=== PATIENT | male | born 1935 | race Caucasian/White ===

== ENCOUNTER 2020-12-02 10:08 | Emergency (ER) | payer OTHER, SELFPAY ==
--- NOTE | ~2020-12-02 | XR_ITS ---
EXAMINATION: XR shoulder LT min 2V DATE: 12/02/2020 11:13 INDICATION: Left shoulder injury. TECHNIQUE: 4 views of left shoulder were obtained. COMPARISON: None. FINDINGS: Bone alignment is normal. No acute fracture. There is mild osteoarthritis of glenohumeral j oint and severe osteoarthritis of acromioclavicular joint. There is an old healed left rib fracture. IMPRESSION: 1. Polyarticular osteoarthritis. Reviewed, dictated and finalized at location A. [employer]
--- NOTE | ~2020-12-02 | XR_ITS ---
EXAMINATION: [id number] INDICATION: Left chest wall pain TECHNIQUE: A frontal view of the chest and 3 views of the left ribs were obtained. COMPARISON: 01/26/2019 FINDINGS: There are acute fractures of the left seventh through ninth ribs. Minimal airspace opacitie s are present in the lung bases. There is no pleural effusion or pneumothorax. Cardiomegaly is noted. IMPRESSION: 1. Acute fractures of the left seventh through ninth ribs. 2. Bibasilar airspace opacities, likely atelectasis. Reviewed, dictated and finalized at location A. NER WALL
[2020-12-02 10:16] VITALS: BP 114/72; PULSE 93; RESP 18; TEMP 37.1; O2SAT 95
--- NOTE | 2020-12-02 11:37 | ED.GENADULT ---
HPI - General Adult General Chief complaint: Fall Stated complaint: Fall - LEFT SHOULDER, LEFT RIB pain x 3 days Time Seen by Provider: 12/02/20 10:33 Source: patient Mode of arrival: ambulatory Limitations: no limitations History of Present Illness HPI narrative: Patient presents with chief complaint of pain to his left shoulder and left ribs after he slipped trying to pull out a mole tramp in his yard and landed on his left side. Patient denies hitting his head or any loss of consciousness. Patient denies any chest pain or shortness of breath. Patient states that he has noticed the most pain to the left side of his ribs in has range of motion in his shoulder but feels a pulling sensation into the left side of his ribs when he does left shoulder movement. Patient denies any other areas of injury or pain. Related Data Home Medications Medication Instructions Recorded Confirmed aspirin 81 mg PO DAILY 12/02/20 lisinopril 20 mg PO DAILY 12/02/20 metoprolol succinate 100 mg PO BID 12/02/20 nifedipine 30 mg PO DAILY 12/02/20 Allergies Allergy/AdvReac Type Severity Reaction Status Date / Time No Known Allergies Allergy Unverified 12/02/20 10:22 Review of Systems Review of Systems: Narrative: CONSTITUTIONAL: Denies fever, chills, or sweats. EYES: Denies visual changes, redness, or discharge. ENT: Denies rhinorrhea, congestion, sore throat, or otalgia. CARDIOVASCULAR: Denies chest pain, palpitations, or edema. RESPIRATORY: Denies cough or dyspnea. GASTROINTESTINAL: Denies abdominal pain, nausea, vomiting, or diarrhea. GENITOURINARY: Denies dysuria or hematuria. SKIN: Denies rash or itching. MUSCULOSKELETAL: Reports left rib and shoulder pain denies back pain, joint pain, or myalgia. NEUROLOGIC: Denies headache, numbness, dizziness, or weakness. PSYCHIATRIC: Denies anxiety or depression. [facility] Past Medical History Medical History (Updated 12/02/20 @ 11:46 by Thelma Modi PA-C) Arthritis Hypertension Social History Social History Gender identity (if verbalized by the patient): Male Exam Narrative: Exam Narrative: GENERAL: Well-appearing, well-nourished, and in no acute distress. HEAD: Normocephalic, atraumatic. EYES: PERRLA and EOMI. NECK: Supple. No adenopathy or masses. CHEST: Pain with palpation of left chest wall/ribs. Clear to auscultation. No respiratory distress. No wheezes rales or rhonchi HEART: Regular rate and rhythm. No murmur heard. Normal peripheral pulses. ABDOMEN: Soft, nontender, nondistended, normal active bowel sounds. EXTREMITIES: Normal range of motion of left shoulder but reports discomfort to pectoral area with motion. No edema. SKIN: Warm, dry, no rash. NEURO: No focal deficits. Alert and oriented x3. PSYCH: Normal mood and affect. Course Vital Signs Vital signs: Vital Signs Temperature 98.7 F 12/02/20 10:16 Pulse Rate 93 12/02/20 10:16 Respiratory Rate 18 12/02/20 10:16 Blood Pressure 114/72 12/02/20 10:16 Pulse Oximetry 95 12/02/20 10:16 Temperature 98.7 F 12/02/20 10:16 Pulse Rate 93 12/02/20 10:16 Respiratory Rate 18 12/02/20 10:16 Blood Pressure 114/72 12/02/20 10:16 Pulse Oximetry 95 12/02/20 10:16 Medical Decision Making MDM Narrative Medical decision making narrative: Discussed with the patient that he has rib fractures. Patient is talking without difficulty, there is no signs of flail chesting and patient is maintaining his oxygenation 96% on room air. Discussed with the patient the importance of close follow-up with his primary care and the importance of deep breathing to avoid complications such as pneumonia. Patient verbalized understanding agreement. Patient will be given a few tablets of tramadol to assist with discomfort and to help him take deep breaths. Patient verbalized understanding and agreement with plan denies any other needs or concerns. Differential Diagnosis Differential Diagnosis: Pneumothorax, rib
[2020-12-02 12:08] VITALS: BP 116/74; PULSE 94; RESP 18; O2SAT 97
== END 2020-12-02 12:08 | disposition home or self-care (01) ==
PROVIDERS: Emergency Provider Emergency Medicine
DX: S43.402A Unspecified sprain of left shoulder joint, initial encounter (principal); S22.42XA Multiple fractures of ribs, left side, initial encounter for closed fracture; Z79.82 Long term (current) use of aspirin; I10 Essential (primary) hypertension; M19.012 Primary osteoarthritis, left shoulder; W18.39XA Other fall on same level, initial encounter
CPT/HCPCS: 71101; 73030; 99284

== ENCOUNTER 2021-06-03 10:29 | Emergency (ER) | payer OTHER, SELFPAY ==
--- NOTE | ~2021-06-03 | XR_ITS ---
EXAMINATION: XR chest 1V portable INDICATION: Chest pain TECHNIQUE: Portable AP chest at 1101 hours COMPARISON: 01/26/[address] from today FINDINGS: There is a moderate-sized left pneumothorax. Multiple displaced left rib fractures are note d. There is a left pleural effusion. The heart size is normal. There are airspace opacities of the neville ng bases. IMPRESSION: 1. Moderate-sized left hemopneumothorax given findings on associated CT. 2. Multiple displaced left rib fractures. These findings were discussed with RED Acevedo in the Emergency Department at 1200 hour s on 06/03/2021. Reviewed, dictated and finalized at location A. IMPRESSION: 1. Moderate-sized left hemopneumothorax given findings on associated CT. 2. Multiple displaced left rib fractures. These findings were discussed with RED Acevedo in the Emergency D epartment at 1200 hours on 06/03/2021.
--- NOTE | ~2021-06-03 | CT_ITS ---
EXAMINATION: CT facial & cervical spine wo DATE: 06/03/2021 11:54 INDICATION: Facial and neck pain after fall TECHNIQUE: Computed tomography (CT) of the maxillofacial region and cervical spine was performed with out intravenous contrast. The dose-length product (DLP) was 568.06 mGy-cm. Automated exposure control and iterative reconstruction technique were employed. COMPARISON: None FINDINGS: MAXILLOFACIAL CT: No acute facial fracture is identified. The orbits are intact. The globes are normal. There is mild l eft facial soft tissue swelling. CERVICAL SPINE CT: The cervical vertebral body heights are maintained. There are bridging osteophytes at multiple levels in the spine, consistent with diffuse idiopathic skeletal hyperostosis (DISH). There is moderate los s of intervertebral disc space height at C6-7.There are 2 mm of anterolisthesis of C5 on C6. The odon toid is intact. There is moderate multilevel facet and uncovertebral joint osteoarthritis. A left hyd ropneumothorax is noted which is described in the chest abdomen and pelvis CT report. IMPRESSION: 1. Moderate cervical spondylosis without acute findings. No facial fracture. Reviewed, dictated and finalized at location A.
--- NOTE | ~2021-06-03 | CT_ITS ---
EXAMINATION: CT brain wo con INDICATION: Head injury COMPARISON: 01/26/2019 TECHNIQUE: Standard unenhanced head CT. The dose-length product (DLP) was 605.33 mGy-cm. The mA was a djusted according to patient size. Iterative reconstruction technique was employed. FINDINGS: There is no acute intraparenchymal hemorrhage. No evidence of mass lesion. No evidence of a cute infarction. Again noted are old lacunar infarcts of the bilateral basal ganglia. There is mild p eriventricular and subcortical hypodensity probably related to small vessel ischemic disease. There i s mild prominence of the sulci and ventricles related to cerebral atrophy. Intracranial calcified cer ebral atherosclerosis is noted. There are no extra-axial collections. There is no mass effect or midl ine shift. The orbits and soft tissues are unremarkable. The visualized sinuses and mastoid air cells are well aerated. IMPRESSION: 1. No acute intracranial abnormality. 2. Age related findings. Reviewed, dictated and finalized at location A.
--- NOTE | ~2021-06-03 | CT_ITS ---
EXAMINATION: CT chest abdomen pelvis w con DATE: 06/03/2021 11:53 INDICATION: Left-sided chest and abdominal pain TECHNIQUE: Transaxial computed tomographic images of the chest, abdomen, and pelvis were obtained aft er the administration of 100 cc of Omnipaque 350 intravenous contrast. The dose-length product (DLP) was 1659.48 mGy-cm. Automated exposure control and iterative reconstruction technique were employed. COMPARISON: None FINDINGS: CHEST CT: There are comminuted, displaced, and segmental fractures of the left fourth, fifth, sixth, seventh, a nd eighth ribs. There is a minimally displaced fracture of the left ninth rib. There is a comminuted fracture of the left scapula. There is a moderate-sized left pneumothorax. Hyperattenuating left pleu ral effusion is consistent with hemothorax. There are airspace opacities of the lung bases. A large v olume of subcutaneous emphysema is present in the left chest wall. No pathologically enlarged thoraci c lymph nodes are identified. The heart size is normal. There are bridging osteophytes at multiple le vels in the spine, consistent with diffuse idiopathic skeletal hyperostosis (DISH). Calcified coronar y artery atherosclerosis is noted. ABDOMEN/PELVIS CT: The liver, spleen, pancreas, gallbladder, and adrenal glands are normal. There is a 2.2 cm cyst of th e left kidney. The right kidney is unremarkable. There is calcified atherosclerosis of the aorta and many of the other arteries. No pathologically enlarged abdominal or pelvic lymph nodes are identified . There is no free intraperitoneal gas or evidence of bowel obstruction. Prostatomegaly is noted. The appendix is normal. There is an umbilical hernia containing a short segment of nonobstructed small b owel. There is moderate lumbar spondylosis. IMPRESSION: 1. Displaced and segmental left-sided rib fractures with moderate-sized left hydropneumothorax, left scapular fracture, and large volume of subcutaneous emphysema in the left chest wall. These findings were discussed with RED Acevedo in the Emergency Department at 1200 hour s on 06/03/2021. Reviewed, dictated and finalized at location A. IMPRESSION: 1. Displaced and segmental left-sided rib fractures with moderate-sized left hy dropneumothorax, left scapular fracture, and large volume of subcutaneous emphy sema in the left chest wall. These findings were discussed with RED Acevedo in the Emergency D epartment at 1200 hours on 06/03/2021.
[2021-06-03 10:34] VITALS: BP 133/82; PULSE 105; RESP 38; TEMP 36.8; O2SAT 88
--- NOTE | 2021-06-03 10:49 | ECG_ITS ---
Measurements Intervals [place] Rate: 89 P: -31 MA: 132 QRS: -38 QRSD: 112 T: 54 QT: 371 QTc: 452 Interpretive Statements SINUS RHYTHM LEFT AXIS DEVIATION INCOMPLETE RIGHT BUNDLE BRANCH BLOCK BORDERLINE T WAVE ABNORMALITY- ANTERIOR LEADS BORDERLINE ECG Electronically Signed On 06-03-2021 12:05:55 CDT by Kendell Navarro D.O.
--- NOTE | 2021-06-03 10:54 | ED.GENADULT ---
HPI - General Adult General Chief complaint: Head Injury Stated complaint: dizzy, fell 2 days ago Time Seen by Provider: 06/03/21 10:31 Source: patient Mode of arrival: ambulatory Limitations: no limitations History of Present Illness HPI narrative: Patient presents for evaluation of left-sided rib pain after sustaining a fall 2 days ago. He indicates he was on the second step from the ground on a ladder when he fell. He thought he was on the bottom step, which caused his misstep. He hit the left side of his chest and his face on the ground. No LOC. Not on blood thinners other than aspirin. Since the time of the fall, he has become dizzy, lightheaded, and experienced shortness of breath all of which are primarily present with exertion. States his current pain level in the left side of his chest wall is 4 out of 10 in severity. Denies cough and shortness of breath at rest. He lives at home alone. He indicates that he has had abnormal blood pressure and heart rate readings at home. Upon my review of his log, it appears that his baseline blood pressure is 130s to 150s systolic but he has had readings in the 80s to 110's since the time of the fall. Of note, his heart rate has been as high as the 150s following the fall per the log presented to me today. Related Data Home Medications Medication Instructions Recorded Confirmed aspirin 81 mg PO DAILY 12/02/20 06/03/21 lisinopril 20 mg PO DAILY 12/02/20 06/03/21 metoprolol succinate 100 mg PO BID 12/02/20 06/03/21 nifedipine 30 mg PO DAILY 12/02/20 06/03/21 Allergies Allergy/AdvReac Type Severity Reaction Status Date / Time No Known Allergies Allergy Verified 06/03/21 10:44 Review of Systems Review of Systems: Narrative: CONSTITUTIONAL: Denies fever, chills, or sweats. EYES: Denies visual changes, redness, or discharge. ENT: Reports laceration to the lower lip. Denies rhinorrhea, congestion, sore throat, or otalgia. CARDIOVASCULAR: Reports left sided chest wall pain. Denies palpitations or edema RESPIRATORY: Reports dyspnea on exertion. Denies shortness of breath at rest or cough.. GASTROINTESTINAL: Denies abdominal pain, nausea, vomiting, or diarrhea. GENITOURINARY: Denies dysuria or hematuria. SKIN: Denies rash or itching. MUSCULOSKELETAL: Denies back pain, joint pain, or myalgia. NEUROLOGIC: Reports dizziness and lightheadedness. Denies headache. PSYCHIATRIC: Denies anxiety or depression. PMF[facility] Past Medical History Medical History Arthritis Hypertension Surgical History Surgical History No pertinent past surgical history Family History Family History Mother No pertinent past medical history Social History Social History Substance use: never Gender identity (if verbalized by the patient): Male Spiritual care concerns: No Exam Narrative: Exam Narrative: GENERAL: Well-appearing, well-nourished, and in no acute distress. HEAD: Normocephalic. Dried sanguinous drainage noted to the lower lip EYES: PERRLA and EOMI. ENT: Multiple dental fractures present. Nares clear, no rhinorrhea or epistaxis. Mucous membranes moist. Oropharynx without tonsillar hypertrophy exudate or other lesions. Bilateral TMs pearly amaro nonbulging NECK: Supple. No adenopathy or masses. No carotid bruits or JVD CHEST: Tenderness over left anterolateral chest wall with subcutaneous emphysema present. Decreased breath sounds in left lower lobe. Poor inspiratory effort. Effort slightly labored. O2 at 2 L per nasal cannula. No wheezes rales or rhonchi HEART: Regular rate and rhythm. No murmur heard. Normal peripheral pulses. ABDOMEN: Soft, tenderness noted in left upper quadrant, nondistended, normal active bowel sounds. EXTREMITIES: Normal ran
[2021-06-03 11:11] LABS: Basophils Percent Auto 0.1 % (0.2-1.2); Hematocrit 43.7 % (42.0-52.0); Hemoglobin 14.4 g/dL (14.0-18.0); Immature Granulocyte Absolute 0.09 K/mm3 (0.00-0.031); Immature Granulocyte Percent A 0.6 % (0-0.5); Lymphocytes Absolute Auto 0.51 K/mm3 (0.9-3.2); Lymphocytes Percent Auto 3.3 % (18.3-44.2); Mean Corpuscular Hemoglobin 30.5 pg (26-34); Mean Corpuscular Volume 92.6 fl (80-100); Mean Platelet Volume 10.9 fl (7.4-10.4); Monocytes Absolute Auto 1.7 K/mm3 (0.1-0.6); Monocytes Percent Auto 10.8 % (2.6-8.5); Neutrophils Absolute Auto 13.4 K/mm3 (1.3-6.7); Neutrophils Percent Auto 85.2 % (45.5-73.1); Platelet Count Result 160 k/mm3 (150-375); Red Blood Count 4.72 M/mm3 (4.6-6.20); Red Cell Distribution Width 13.2 % (11.5-14.5); White Blood Count 15.7 K/mm3 (4.5-10.0)
[2021-06-03 11:19] LABS: Alanine Aminotransferase 23 U/L (4-50); Albumin Level 4.2 g/dL (3.5-5.1); Alkaline Phosphatase 98 U/L (38-126); Anion Gap 9 mmol/L (8-16); Aspartate Amino Transferase 52 U/L (17-59); Bilirubin,Total 1.5 mg/dL (0.2-1.3); Blood Urea Nitrogen 38 mg/dL (9-20); Calcium 8.9 mg/dL (8.4-10.2); Carbon Dioxide 24 mmol/L (22-30); Chloride 108 mmol/L (98-107); Estimated CRCL calculation 34 ml/min; Estimated Glomerular Filt Rate 34; Glucose 136 mg/dL (65-110); Lipase 13 U/L (23-300); Potassium 4.2 mmol/L (3.4-5.0); Sodium 141 mmol/L (137-145)
[2021-06-03 11:24] LABS: INR 1.1; Prothrombin Time 14.4 Seconds (11.1-14.7)
[2021-06-03 11:26] LABS: Partial Thromboplastin Time 32.6 SECONDS (22.3-36.8)
[2021-06-03 11:35] LABS: Troponin I 0.187 ng/mL (0.000-0.034)
[2021-06-03] MEDS: SODIUM CHLORIDE 0.9% IV 1,000 ML 75 ML IV CONT (11:59)
--- NOTE | 2021-06-03 11:59 | PC.NURSE ---
PT STATES UNABLE TO VOID AT THIS TIME. REFUSES CATH AT THIS TIME
[2021-06-03 12:00] VITALS: BP 142/68; PULSE 90; RESP 20; O2SAT 93
[2021-06-03 12:37] VITALS: BP 132/69; PULSE 86; RESP 20; O2SAT 93
[2021-06-03 12:59] VITALS: BP 129/77; PULSE 88; RESP 36; O2SAT 94
--- NOTE | 2021-06-03 13:06 | PC.NURSE ---
REPORT CALLED TO WILLEM MADRIGAL AT [facility] ED. ALL QUESTIONS ANSWERED.
[2021-06-03 13:49] VITALS: BP 127/75; PULSE 90; RESP 20; O2SAT 93
[2021-06-03 14:17] LABS: Troponin I 0.234 ng/mL (0.000-0.034)
[2021-06-03 14:21] LABS: Add Urine Microscopic? YES; Appearance Urine Clear (Clear); Bacteria Urine Trace /hpf; Bilirubin Urine Negative (Negative); Blood Urine 2+ (Negative); Color Urine Yellow (Yellow); Glucose Urine UA Negative (Negative); Ketones Urine Negative (Negative); Leukocyte Esterase Ur Negative LEU/UL (Negative); Mucus Urine Rare /lpf; Nitrate Urine Negative (Negative); Protein Urine 1+ mg/dL (Negative); RBC Urine 0-2 /hpf (0-2); Squamous Epithelial Cell Urine Rare /hpf (Few); Urobilinogen Urine Negative mg/dL (<2.0); WBC Urine 0-3 /hpf
[2021-06-03 14:24] LABS: Specific Grav Ur 1.056 (1.001-1.035)
[2021-06-03 14:25] VITALS: BP 125/85; PULSE 90; RESP 28; O2SAT 95
== END 2021-06-03 14:31 | disposition short-term general hospital (02) ==
LOC: ANHED 12:13
PROVIDERS: Emergency Provider Nurse Practitioner
DX: S22.42XA Multiple fractures of ribs, left side, initial encounter for closed fracture (principal); S42.102A Fracture of unspecified part of scapula, left shoulder, initial encounter for closed fracture; S27.2XXA Traumatic hemopneumothorax, initial encounter; M19.90 Unspecified osteoarthritis, unspecified site; I10 Essential (primary) hypertension; I45.10 Unspecified right bundle-branch block; R94.31 Abnormal electrocardiogram [ECG] [EKG]; W11.XXXA Fall on and from ladder, initial encounter
CPT/HCPCS: 36415; 70450; 70486; 71045; 71260; 72125; 74177; 80053; 81001; 83690; 84484; 85025; 85610; 85730; 93005; 96360; 96361; 99291; J7030; Q9967

== ENCOUNTER 2024-01-07 12:41 | Inpatient (IN) | payer MEDICARE, OTHER, SELFPAY ==
--- NOTE | ~2024-01-07 | XR_ITS ---
EXAMINATION: XR chest 2V DATE: 01/07/2024 17:41 INDICATION: Weakness. TECHNIQUE: Frontal and lateral views of the chest were obtained on 3 radiographs. COMPARISON: Chest one view 06/03/2021, chest CT 06/03/2021 FINDINGS: There is mild elevation of left hemidiaphragm. There is mild atelectasis in left lower lung zone. No pleural effusion or pneumothorax. The heart size is normal. There are prominent paracardial fat pads. There are old healed left rib fractures. IMPRESSION: 1. Mild atelectasis in left lower lung zone. Reviewed, dictated and finalized at location E. G BOX HAND
--- NOTE | ~2024-01-07 | XR_ITS ---
EXAMINATION: XR_KNEE1-2VLT_CR, XR_KNEE1-2VRT_CR DATE: 01/08/2024 13:41 INDICATION: Right knee pain post fall TECHNIQUE: 1. AP and crosstable lateral views of the right knee were obtained. 2. AP and crosstable lateral views of the left knee were obtained.. COMPARISON: None. FINDINGS: Minimal genu varus at the left knee. Normal alignment at the right knee. No fractures. Medial and pat ellofemoral compartment osteoarthritis of both knees with small marginal osteophytes at the bilateral patellofemoral compartments and at least moderate severity joint space narrowing at the medial sumit rtments although severity of joint space narrowing can be underestimated on nonweightbearing imaging. No erosions. Mildly asymmetric small bilateral knee joint effusion without layering lipohemarthrosis . There also symmetric small enthesophytes at the patellar insertions of the distal quadriceps tendon s. IMPRESSION: 1. Relatively symmetric small bilateral knee joint effusions without layering lipohemarthrosis and wi thout acute osseous abnormality at either knee. 2. Also relatively symmetric mild patellofemoral and at least moderate severity medial compartment os teoarthritis of both knees. Reviewed, dictated and finalized at location A. SION SERGEANT IMPRESSION: 1. Relatively symmetric small bilateral knee joint effusions without layering l ipohemarthrosis and without acute osseous abnormality at either knee. 2. Also relatively symmetric mild patellofemoral and at least moderate severity medial compartment osteoarthritis of both knees.
--- NOTE | ~2024-01-07 | MR_ITS ---
MRI of the left knee Clinical history: Pain Technique: Coronal proton density and proton density-weighted images, sagittal proton-density and T2 fat-sat images, and axial proton-density fat-saturated images were acquired. Findings: Anterior and posterior cruciate ligaments are intact. Medial collateral ligament demonstrat es mild thickening and increased signal proximally. Lateral collateral ligament complex is intact. Po pliteus tendon is intact. There is complex tearing of the posterior horn and body of the medial meniscus. No lateral meniscal t ear seen. 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 There is mild chondra l thinning of the lateral joint line. There is diffuse mild chondral thinning of the femoral trochlea . There is focal high-grade chondromalacia at the patellar apex. Small tricompartment osteophytes are present. Extensor mechanism is intact. Moderate joint effusion present. Moderate Lechuga's cyst present. There i s diffuse subcutaneous soft tissue edema. Impression: Complex tearing of the posterior horn and body medial meniscus. Mild to [id number] tricompartment degenerative change, worst in the medial compartment. Moderate joint effusion with moderate Lechuga's cyst. Probable chronic change at the proximal MCL versus low-grade sprain. Correlate clinically. Reviewed, dictated and finalized at location . ER HOUSE SUPERVISOR Impression: Complex tearing of the posterior horn and body medial meniscus. Mild to [id number] tricompartment degenerative change, worst in the media l compartment. Moderate joint effusion with moderate Lechuga's cyst. Probable chronic change at the proximal MCL versus low-grade sprain. Correlate clinically.
--- NOTE | ~2024-01-07 | CT_ITS ---
EXAMINATION: CT facial bones wo con DATE: 01/07/2024 18:17 INDICATION: Right facial swelling. TECHNIQUE: Computed tomography (CT) of the facial bones and maxillofacial region was performed withou t intravenous contrast. Automated exposure control and iterative reconstruction technique were employ ed. The dose-length product was 327.82 mGy-cm. COMPARISON: CT maxillofacial 06/03/2021 FINDINGS: There are carious lesions involving many of the teeth. Several of the teeth demonstrate per iapical lucencies. A right mandibular molar demonstrates a carious lesion and periapical lucencies wi th breech of the lingual cortex of the alveolar process. There is fat stranding and soft tissue swell ing involving the right lower face with foci of soft tissue gas. No definite drainable fluid collecti on. There is enlargement of the right submandibular gland. There are no pathologically enlarged lymph nodes. There are bridging endplate osteophytes at multiple levels in the spine, consistent with diff use idiopathic skeletal hyperostosis (DISH). IMPRESSION: 1. Extensive dental disease. Cellulitis and soft tissue gas centered at a right mandibular molar. Reviewed, dictated and finalized at location E. TENDER
--- NOTE | ~2024-01-07 | MR_ITS ---
MRI of the right knee Clinical history: Pain Technique: Coronal proton density and proton density-weighted images, sagittal proton-density and T2 fat-sat images, and axial proton-density fat-saturated images were acquired. Findings: The anterior and posterior cruciate ligaments are intact. Medial collateral ligament and th e lateral collateral ligament complex are intact. Popliteus tendon is intact. There is complex tearing of the posterior horn and body of the medial meniscus. Probable radial tear also present near the posterior root. No lateral meniscal tear evident. There is diffuse high-grade chondromalacia of the medial compartment, especially medial femoral condy le with joint space narrowing. There is mild chondral thinning of the lateral compartment. There is h igh-grade chondral lesion at the patellar apex, with moderate chondral malacia the femoral trochlea. Small tricompartmental osteophyte are present. Extensor mechanism is intact. Small to moderate joint effusion present. Small Lechuga's cyst. There is diffuse subcutaneous soft tissue edema. Impression: Complex tearing of the posterior horn and body of medial meniscus with additional probable radial tea r at the posterior. Tricompartmental degenerative change, as detailed above, worst in the medial compartment. Small to moderate joint effusion with small Lechuga's cyst. Reviewed, dictated and finalized at location . INAL ANALYST Impression: Complex tearing of the posterior horn and body of medial meniscus with addition al probable radial tear at the posterior. Tricompartmental degenerative change, as detailed above, worst in the medial co mpartment. Small to moderate joint effusion with small Lechuga's cyst.
--- NOTE | ~2024-01-07 | CT_ITS ---
EXAMINATION: CT brain wo con DATE: 01/07/2024 18:17 INDICATION: Right facial swelling. TECHNIQUE: Computed tomography (CT) of the head was performed without intravenous contrast. The mA wa s adjusted according to patient size. Iterative reconstruction technique was employed. The dose-lengt h product was 681.00 mGy-cm. COMPARISON: Head CT 06/03/2021 FINDINGS: There are scattered areas of low attenuation in the cerebral white matter. There are old in farcts involving the right basal ganglia and right thalamus. There is no intracranial hemorrhage, acu te infarction, or abnormal intracranial mass lesion. The ventricles are normal in size. The paranasal sinuses are clear. The orbits are normal. The mastoid air cells are normal. IMPRESSION: 1. 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 2. Stable moderate nonspecific cerebral white matter disease, which likely represents chronic small v essel ischemic disease. Reviewed, dictated and finalized at location E. RTISING SALES CONSULTANT IMPRESSION: 1. 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 2. Stable moderate nonspecific cerebral white matter disease, which likely repr esents chronic small vessel ischemic disease.
[2024-01-07 12:55] VITALS: BP 111/60; PULSE 101; RESP 18; TEMP 36.2; O2SAT 92
--- NOTE | 2024-01-07 17:24 | ED.WEAKNESS ---
HPI - Weakness General Chief complaint: Weakness <Lizzy Wallis PA-C - Last Filed: 01/08/24 13:27> Stated complaint: weakness <Lizzy Wallis PA-C - Last Filed: 01/08/24 13:27> Time Seen by Provider: 01/07/24 17:24 <Lizzy Wallis PA-C - Last Filed: 01/08/24 13:27> Focused HPI: This is a 88 year old male that presents to the ER for generalized weakness. Reports poor PO intake. Reports swelling on the right side of his face. Denies fever, chest pain or shortness of breath. GENERAL: Well-appearing, well-nourished, and in no acute distress. HEAD: Normocephalic, atraumatic. CHEST: Clear to auscultation. ?No respiratory distress. HEART: Regular rate and rhythm.? NEURO: ?Alert and oriented x3. Patient screened in triage and initial orders placed.? ?Additional care and disposition to be based upon?diagnostic testing and treatment. <Lizzy Wallis PA-C - Last Filed: 01/08/24 13:27> History of Present Illness HPI Narrative: 88-year-old male presenting do a harris of increased generalized weakness this started today. Patient reports he has had decreased p.o. intake for the last 3 days. Patient denies any coughs colds or fevers. Patient states he was loading up his truck with wood when his legs gave out. Patient states he went down to the ground but did not injure in self. Patient denies striking his head denies loss of consciousness. Patient states due to the weakness he was unable to get back up states his legs do feel weak bilaterally. Patient also complains right-sided facial pain this been ongoing for the last week. Patient denies any difficulty breathing or swallowing. <Pasha Sweet MD - Last Filed: 01/08/24 07:30> Related Data Home medications: Home Medications Medication Instructions Recorded Confirmed aspirin 81 mg tablet 81 mg PO DAILY 12/02/20 01/07/24 lisinopril 20 mg tablet 20 mg PO DAILY 12/02/20 01/07/24 metoprolol succinate 100 mg 100 mg PO BID 12/02/20 01/07/24 tablet,extended release 24 hr nifedipine 30 mg tablet,extended 30 mg PO DAILY 12/02/20 01/07/24 release <Lizzy Wallis PA-C - Last Filed: 01/08/24 13:27> Allergies/Adverse reactions: Allergies Allergy/AdvReac Type Severity Reaction Status Date / Time No Known Allergies Allergy Verified 01/07/24 18:52 <Lizzy Wallis PA-C - Last Filed: 01/08/24 13:27> Review of Systems Review of Systems: All systems reviewed & are unremarkable except as noted in HPI and below <Pasha Sweet MD - Last Filed: 01/08/24 07:30> [facility] Past Medical History Medical History: Medical History (Updated 01/08/24 @ 13:27 by Lizzy Wallis PA-C) Arthritis Hypertension <Lizzy Wallis PA-C - Last Filed: 01/08/24 13:27> Surgical History Surgical History: Surgical History No pertinent past surgical history <Lizzy Wallis PA-C - Last Filed: 01/08/24 13:27> Family History Family History: Family History Mother No pertinent past medical history <Lizzy Wallis PA-C - Last Filed: 01/08/24 13:27> Social History Social History: Social History Smoking status: Former smoker Alcohol intake: current Substance use: never Do You Feel Safe in your Home?: Yes Lack of Transportation: No Lack of Food: Never True Current Housing: I Have Housing Concerned About Future Housing: No Difficulty Paying Gas/Electric Bills: No Difficulty Paying for Meds: No Currently Unemployed: No Education: Don't Know Difficulty w/ Childcare or Family Care: No Living arrangements: alone Gender identity (if verbalized by the patient): Male Spiritual care concerns: No <Lizzy Wallis PA-C - Last Filed: 01/08/24 13:27> Exam Narrative: APPEARANCE: Right-sided facial swelling HEAD: norm
[2024-01-07 17:36] LABS: Basophils Percent Auto 0.2 % (0.2-1.2); Eosinophils Percent Auto 0.1 % (0-4.4); Hematocrit 46.6 % (42.0-52.0); Hemoglobin 14.9 g/dL (14.0-18.0); Immature Granulocyte Absolute 0.12 K/mm3 (0.00-0.031); Immature Granulocyte Percent A 0.6 % (0-0.5); Lymphocytes Absolute Auto 0.62 K/mm3 (0.9-3.2); Lymphocytes Percent Auto 3.2 % (18.3-44.2); Mean Corpuscular Volume 93.8 fl (80-100); Mean Platelet Volume 10.1 fl (7.4-10.4); Monocytes Absolute Auto 1.5 K/mm3 (0.1-0.6); Monocytes Percent Auto 7.8 % (2.6-8.5); Neutrophils Absolute Auto 17.1 K/mm3 (1.3-6.7); Neutrophils Percent Auto 88.1 % (45.5-73.1); Platelet Count Result 241 k/mm3 (150-375); Red Blood Count 4.97 M/mm3 (4.6-6.20); Red Cell Distribution Width 13.1 % (11.5-14.5); White Blood Count 19.4 K/mm3 (4.5-10.0)
[2024-01-07 17:46] LABS: INR 1.2; Prothrombin Time 15.3 Seconds (11.1-14.7)
[2024-01-07 17:47] LABS: Partial Thromboplastin Time 33.4 SECONDS (22.3-36.8)
[2024-01-07 17:56] LABS: Alanine Aminotransferase 25 U/L (6-50); Albumin Level 4.1 g/dL (3.5-5.1); Alkaline Phosphatase 112 U/L (38-126); Anion Gap 11 mmol/L (8-16); Aspartate Amino Transferase 34 U/L (17-59); Bilirubin,Total 0.9 mg/dL (0.2-1.3); Blood Urea Nitrogen 57 mg/dL (9-20); CRP > 9.0 mg/dL (<1.0); Calcium 9.1 mg/dL (8.4-10.2); Carbon Dioxide 25 mmol/L (22-30); Chloride 103 mmol/L (98-107); Estimated CRCL calculation 22 ml/min; Estimated Glomerular Filt Rate 22; Glucose 122 mg/dL (65-110); Potassium 3.5 mmol/L (3.4-5.0); Sodium 139 mmol/L (137-145)
[2024-01-07 18:30] LABS: Erythrocyte Sedimentation Rate 58 mm/hr (0-20)
[2024-01-07 18:53] VITALS: BP 132/76; PULSE 87; RESP 28; TEMP 36.8; O2SAT 97
[2024-01-07 18:55] VITALS: PULSE 86
[2024-01-07] MEDS: SODIUM CHLORIDE 0.9% IV 1,000 ML 999 ML IV CONT (20:06)
[2024-01-07 20:08] VITALS: BP 137/74; PULSE 84; RESP 18; O2SAT 97
[2024-01-07] MEDS: AMPICILLIN SULB 3 GM/NS 100 ML 3 GM/100 ML VIAL IVPB (20:14)
[2024-01-07 20:20] LABS: Appearance Urine Cloudy (Clear); Bacteria Urine None Seen /hpf; Bilirubin Urine Negative (Negative); Blood Urine 2+ (Negative); Color Urine Yellow (Yellow); Glucose Urine UA Negative (Negative); Hyaline Casts Urine Present /lpf; Ketones Urine Trace mg/dL (Negative); Leukocyte Esterase Ur Trace LEU/UL (Negative); Need Manual Microscopic Reviewed; Nitrate Urine Negative (Negative); Non Pathogenic Casts >20; Protein Urine 1+ mg/dL (Negative); RBC Urine 0-2 /hpf (0-2); Specific Grav Ur 1.017 (1.001-1.035); Squamous Epithelial Cell Urine Moderate /hpf (Few); Urobilinogen Urine 0.2 mg/dL (<2.0)
[2024-01-07 20:21] LABS: Influenza A QL RT-PCR Negative (Negative); Influenza B QL RT-PCR Negative (Negative); RSV RNA, RT-PCR Negative (Negative); SARS-CoV-2 RNA PCR Negative (Negative)
[2024-01-07 20:21] LABS: Add Urine Microscopic? YES
--- NOTE | 2024-01-07 20:34 | PM.IMHP ---
H&P: HPI History of Present Illness Date/Time: 01/07/24 20:34 Chief Complaint: Swelling of the face Narrative: This is an 88-year-old male with past medical history significant for arthritis, hypertension. Patient presents to the emergency room due to swelling of the right side of his face with painful mastication and swallowing poor per orally intake patient is not really a good historian can not really provide much detail. In emergency room preliminary workup was significant for CT of the face was reported as: EXAMINATION: XR chest 2V DATE: 01/07/2024 17:41 INDICATION: Weakness. TECHNIQUE: Frontal and lateral views of the chest were obtained on 3 radiographs. COMPARISON: Chest one view 06/03/2021, chest CT 06/03/2021 FINDINGS: There is mild elevation of left hemidiaphragm. There is mild atelectasis in left lower lung zone. No pleural effusion or pneumothorax. The heart size is normal. There are prominent paracardial fat pads. There are old healed left rib fractures. IMPRESSION: 1. Mild atelectasis in left lower lung zone. EXAMINATION: CT brain wo con DATE: 01/07/2024 18:17 INDICATION: Right facial swelling. TECHNIQUE: Computed tomography (CT) of the head was performed without intravenous contrast. The mA was adjusted according to patient size. Iterative reconstruction technique was employed. The dose-length product was 681.00 mGy-cm. COMPARISON: Head CT 06/03/2021 FINDINGS: There are scattered areas of low attenuation in the cerebral white matter. There are old infarcts involving the right basal ganglia and right thalamus. There is no intracranial hemorrhage, acute infarction, or abnormal intracranial mass lesion. The ventricles are normal in size. The paranasal sinuses are clear. The orbits are normal. The mastoid air cells are normal. IMPRESSION: 1. 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 2. Stable moderate nonspecific cerebral white matter disease, which likely represents chronic small vessel ischemic disease. EXAMINATION: CT facial bones wo con DATE: 01/07/2024 18:17 INDICATION: Right facial swelling. TECHNIQUE: Computed tomography (CT) of the facial bones and maxillofacial region was performed without intravenous contrast. Automated exposure control and iterative reconstruction technique were employed. The dose-length product was 327.82 mGy-cm. COMPARISON: CT maxillofacial 06/03/2021 FINDINGS: There are carious lesions involving many of the teeth. Several of the teeth demonstrate periapical lucencies. A right mandibular molar demonstrates a carious lesion and periapical lucencies with breech of the lingual cortex of the alveolar process. There is fat stranding and soft tissue swelling involving the right lower face with foci of soft tissue gas. No definite drainable fluid collection. There is enlargement of the right submandibular gland. There are no pathologically enlarged lymph nodes. There are bridging endplate osteophytes at multiple levels in the spine, consistent with diffuse idiopathic skeletal hyperostosis (DISH). IMPRESSION: 1. Extensive dental disease. Cellulitis and soft tissue gas centered at a right mandibular molar. patient has been admitted for further evaluation management and treatment. Review of Systems Review of Systems: right side of the face swelling Constitutional: Constitutional: Denies chills, Denies fever(s), Denies malaise, Denies night sweats and Denies poor appetite Eyes: Eyes: Denies change in vision ENT: Denies dysphagia, Denies vertigo, Denies dizziness, Denies nasal congestion, Denies nasal discharge, Denies neck pain and Reports odynophagia Cardiovascular: Cardiovascular: Denies chest pain, Denies radiating jaw, neck or arm pain and Denies palpitations Respiratory: Respiratory: Denies cough and Denies dyspnea Gastrointestinal: Gastrointestinal: Denies abdominal pain, Denies dyspepsia, Denies diarrhea, Denies nausea and Denies vomitin
--- NOTE | 2024-01-07 20:50 | PC.NURSE ---
This RN took over care of pt @191
[2024-01-07] MEDS: metroNIDAZOLE 500 MG/ISO 100ML 500 MG/100 ML BAG 100 MG IVPB (21:19)
[2024-01-07] MEDS: SODIUM CHLORIDE 0.9% IV 1,000 ML 125 ML IV CONT (21:19)
--- NOTE | 2024-01-07 23:02 | ADMGEN ---
This patient, Levar Myesr, was admitted to 3 [facility] Surg Room 322-02. Patient/family oriented to hospital policies and general routines including ID bracelet, bed and alarms, visiting hours, pain management, procedures, bathroom and other care routines, personal items, smoking policy, room service/diet, and visiting hours. Information on how to activate the Rapid Response Team has been discussed. Patient/Family are encouraged to report perceived risks to care and to ask questions if they do not understand what they are told or what they should do.
[2024-01-07 23:04] VITALS: BP 152/62; PULSE 94; RESP 16; TEMP 36.7; O2SAT 95; BMI 33.3
[2024-01-07 23:05] VITALS: BP 152/62; PULSE 94; RESP 16; TEMP 36.7; O2SAT 95; BMI 33.3
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
[2024-01-08] MEDS: TAMSULOSIN HCL 0.4 MG CAPSULE PO (02:01)
[2024-01-08 05:24] VITALS: BP 130/66; PULSE 90; RESP 15; TEMP 37.2; O2SAT 97
[2024-01-08] MEDS: SODIUM CHLORIDE 0.9% IV 1,000 ML 125 ML IV CONT (06:08)
[2024-01-08 09:55] VITALS: PULSE 104
[2024-01-08] MEDS: ASPIRIN 81 MG ENTERIC TABLET PO (09:55)
[2024-01-08] MEDS: NIFEdipine 30 MG TAB.ER.24 PO (09:55)
[2024-01-08] MEDS: AMPICILLIN SULB 3 GM/NS 100 ML 3 GM/100 ML VIAL IVPB ×2 (09:55→20:35)
[2024-01-08] MEDS: lisinopriL 20 MG TABLET PO (09:55)
[2024-01-08] MEDS: METOPROLOL SUCCINATE EXT REL 100 MG TABCR PO ×2 (09:55→20:35)
[2024-01-08 14:00] VITALS: BP 118/73; PULSE 86; RESP 20; TEMP 36.6; O2SAT 95
--- NOTE | 2024-01-08 14:58 | PM.IMPN ---
Progress Note: A&P Assessment and Plan (1) Dental infection: Code(s): K04.7 - Periapical abscess without sinus Status: Acute (2) Cellulitis: Qualifiers: Site of cellulitis: face Qualified Code(s): L03.211 - Cellulitis of face Code(s): L03.90 - Cellulitis, unspecified Status: Acute Assessment and Plan: admit to regular medical floor ?patient started on Zosyn and Flagyl ?await cultures (3) Hypertension: Code(s): I10 - Essential (primary) hypertension Status: Acute (4) Abscess, apical: Code(s): K04.7 - Periapical abscess without sinus Status: Acute Plan Knee pain - xray shows OA Relatively symmetric small bilateral knee joint effusions without layering lipohemarthrosis and without acute osseous abnormality at either knee. 2. Also relatively symmetric mild patellofemoral and at least moderate severity medial compartment osteoarthritis of both knees. consult orthopedics [facility] / OT and pain control for now Urinary frequency awaiting UC results Subjective Date/time seen: 01/08/24 14:58 Interval history: 88-year-old male with past medical history significant for arthritis, hypertension.? Patient presents to the emergency room due to swelling of the right side of his face with painful mastication and swallowing poor per orally intake patient is not really a good historian can not really provide much detail.? Pt not seen doctors for years Review of Systems Review of Systems: Pt having knee pains and urinary frequency denies sob or wheeze Objective Data Vital Signs Vital Signs: Vital Signs - 24 hr 01/07/24 18:53 01/07/24 18:55 01/07/24 20:08 Temperature 36.8 C Pulse Rate 87 86 84 Respiratory Rate 28 H 18 Blood Pressure 132/76 137/74 Pulse Oximetry 97 97 Oxygen Delivery 01/07/24 23:04 01/07/24 23:38 01/08/24 05:24 Temperature 36.7 C 37.2 C Pulse Rate 94 90 Respiratory Rate 16 15 Blood Pressure 152/62 H 130/66 Pulse Oximetry 95 97 Oxygen Delivery Room Air 01/08/24 09:55 01/08/24 11:09 01/07/24 23:05 Temperature 36.7 C Pulse Rate 104 H 94 Respiratory Rate 16 Blood Pressure 152/62 H Pulse Oximetry 95 Oxygen Delivery Room Air Intake/Output Intake/Output: Intake & Output 01/05/24 01/06/24 01/07/24 01/08/24 23:59 23:59 23:59 23:59 Intake Total 1200 2698 Output Total 125 825 Balance 1075 1873 Meds/Results Medications: Active Medications Generic Name Dose Route Start Last Admin Trade Name Freq PRN Reason Stop Dose Admin Aspirin 81 mg 01/08/24 09:00 01/08/24 09:55 Aspirin 81 Mg Enteric Tablet PO 81 mg QAM GWENDOLYN Administration Ampicillin Sodium/Sulbactam Sodium 3 gm in 100 mls @ 200 mls/hr 01/08/24 08:00 01/08/24 09:55 Unasyn 3 Gm/Ns 100 Ml IVPB 200 mls/hr Q12H GWENDOLYN Administration Sodium Chloride 1,000 mls @ 125 mls/hr 01/07/24 20:40 01/08/24 06:08 Normal Saline Iv IV CONT 125 mls/hr .Q8H GWENDOLYN Administration Lisinopril 20 mg 01/08/24 09:00 01/08/24 09:55 Lisinopril 20 Mg Tablet PO 20 mg DAILY GWENDOLYN Administration Metoprolol Succinate 100 mg 01/08/24 09:00 01/08/24 09:55 Metoprolol Succinate Ext Rel 100 Mg Tabcr PO 100 mg Q12HR GWENDOLYN Administration Nifedipine 30 mg 01/08/24 09:00 01/08/24 09:55 Nifedipine 30 Mg Tab.Er.24 PO 30 mg DAILY GWENDOLYN Administration Ondansetron HCl 4 mg 01/07/24 20:38 Ondansetron Inj 4 Mg/2 Ml Vial IV PUSH Q4H PRN Nausea Radiology Results: ITS Impressions Chest X-Ray 01/07/24 17:42 IMPRESSION: 1. Mild atelectasis in left lower lung zone. Head CT 01/07/24 18:19 IMPRESSION: 1. 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 2. Stable moderate nonspecific cerebral white matter disease, which likely represents chronic small vessel ischemic disease. Face CT 01/07/24 18:22 IMPRESSION: 1. Extensive dental disease. Cellulitis and so
[2024-01-08] MEDS: SODIUM CHLORIDE 0.9% IV 1,000 ML 70 ML IV CONT (19:04)
[2024-01-08 20:34] VITALS: BP 124/72; PULSE 75; RESP 20; TEMP 36.5; O2SAT 94
[2024-01-09 05:13] VITALS: BP 130/70; PULSE 75; RESP 20; TEMP 36.5; O2SAT 93
[2024-01-09 05:54] LABS: Hematocrit 42.3 % (42.0-52.0); Hemoglobin 13.4 g/dL (14.0-18.0); Mean Corpuscular HGB Conc 31.7 g/dl (32-36); Mean Corpuscular Hemoglobin 29.9 pg (26-34); Mean Corpuscular Volume 94.4 fl (80-100); Mean Platelet Volume 10.4 fl (7.4-10.4); Platelet Count Result 188 k/mm3 (150-375); Red Blood Count 4.48 M/mm3 (4.6-6.20); Red Cell Distribution Width 13.1 % (11.5-14.5); White Blood Count 9.3 K/mm3 (4.5-10.0)
[2024-01-09 06:06] LABS: Anion Gap 5 mmol/L (8-16); Blood Urea Nitrogen 43 mg/dL (9-20); Calcium 8.1 mg/dL (8.4-10.2); Carbon Dioxide 24 mmol/L (22-30); Chloride 109 mmol/L (98-107); Estimated CRCL calculation 33 ml/min; Estimated Glomerular Filt Rate 36; Glucose 111 mg/dL (65-110); Potassium 3.5 mmol/L (3.4-5.0); Sodium 138 mmol/L (137-145)
[2024-01-09] MEDS: AMPICILLIN SULB 3 GM/NS 100 ML 3 GM/100 ML VIAL IVPB ×2 (08:03→20:40)
[2024-01-09 08:04] VITALS: PULSE 76
[2024-01-09] MEDS: NIFEdipine 30 MG TAB.ER.24 PO (08:04)
[2024-01-09] MEDS: METOPROLOL SUCCINATE EXT REL 100 MG TABCR PO ×2 (08:04→20:41)
[2024-01-09] MEDS: ASPIRIN 81 MG ENTERIC TABLET PO (08:04)
[2024-01-09] MEDS: lisinopriL 20 MG TABLET PO (08:04)
--- NOTE | 2024-01-09 10:50 | PM.CNOR ---
Assessment and Plan Assessment and plan (1) Bilateral knee pain: Code(s): M25.561 - Pain in right knee; M25.562 - Pain in left knee Status: Acute Assessment and Plan: Bilateral knee pain after a fall from ground level. Patient states that his left knee bent all the way back. Patient has large bilateral knee effusions. Concern for ligamentous injury. I recommend bilateral MRIs. Left knee pain worse than right. Significant pain with any motion. Severe pain with varus stress to the left knee. Unable to bear weight due to the pain. Patient states he did not have any pain prior to this. His radiographs do show moderate to severe medial and patellofemoral joint arthritis. Differential includes ligamentous injury, arthritis flare, or gout. Notable that patient has a dental abscess and is on IV antibiotics currently. Less likely that he has a septic joint in bilateral knees. Discussed with Dr. Baker who agrees with plan. (2) Bilateral knee effusions: Code(s): M25.461 - Effusion, right knee; M25.462 - Effusion, left knee Status: Acute History of Present Illness HPI Consult date: 01/09/24 Chief complaint: Dental Abscess Narrative: Patient was admitted to the ER after a fall. Patient states she fell under his truck. His left knee flexed all the way back and he was unable to get up. He states he was down for about 20 minutes due to his need for team and help to up. He has significant trouble bearing weight and uses a walker. He notes originally both knees were hurting but now it is mostly the left. He states he has never had issues with his knees prior. He typically lives at home by himself. Pain with any motion of the left and right knee. Guarding the left significantly. No distal numbness or tingling. While in the ER he is also fine to found to have a dental abscess and extensive dental disease. He is currently on IV antibiotics for cellulitis. Review of Systems Review of Systems: All systems reviewed & are unremarkable except as noted in HPI and below PMFSH Past Medical History Medical History (Updated 01/09/24 @ 14:44 by KUNAL Mcduffie) Arthritis Hypertension Surgical History Surgical History No pertinent past surgical history Family History Family History Mother No pertinent past medical history Social History Social History Smoking status: Former smoker Alcohol intake: current Substance use: never Do You Feel Safe in your Home?: Yes Lack of Transportation: No Lack of Food: Never True Current Housing: I Have Housing Concerned About Future Housing: No Difficulty Paying Gas/Electric Bills: No Difficulty Paying for Meds: No Currently Unemployed: No Education: Don't Know Difficulty w/ Childcare or Family Care: No Living arrangements: alone Gender identity (if verbalized by the patient): Male Spiritual care concerns: No Meds Home Medications and Allergies Home Medications Medication Instructions Recorded Confirmed Type aspirin 81 mg tablet 81 mg PO DAILY 12/02/20 01/07/24 History lisinopril 20 mg tablet 20 mg PO DAILY 12/02/20 01/07/24 History metoprolol succinate 100 mg 100 mg PO BID 12/02/20 01/07/24 History tablet,extended release 24 hr nifedipine 30 mg tablet,extended 30 mg PO DAILY 12/02/20 01/07/24 History release Allergies Allergy/AdvReac Type Severity Reaction Status Date / Time No Known Allergies Allergy Verified 01/07/24 18:52 Vital Signs Vital Signs - 24 hr 01/08/24 11:09 01/08/24 14:00 01/08/24 14:50 Temperature 97.9 F Pulse Rate 86 Respiratory Rate 20 Blood Pressure 118/73 Pulse Oximetry 95 Oxygen Delivery Room Air Room Air 01/08/24 20:34 01/08/24 20:00 01/09/24 05:13 Temperature 9
--- NOTE | 2024-01-09 13:21 | PM.IMPN ---
Progress Note: A&P Assessment and Plan (1) Dental infection: Code(s): K04.7 - Periapical abscess without sinus Status: Acute (2) Cellulitis: Qualifiers: Site of cellulitis: face Qualified Code(s): L03.211 - Cellulitis of face Code(s): L03.90 - Cellulitis, unspecified Status: Acute Assessment and Plan: ?patient started on Zosyn and Flagyl WCC remain high ?await cultures pt seen by orthopedics (3) Hypertension: Code(s): I10 - Essential (primary) hypertension Status: Acute (4) Abscess, apical: Code(s): K04.7 - Periapical abscess without sinus Status: Acute Plan Knee pain - xray shows OA Relatively symmetric small bilateral knee joint effusions without layering lipohemarthrosis and without acute osseous abnormality at either knee. 2. Also relatively symmetric mild patellofemoral and at least moderate severity medial compartment osteoarthritis of both knees. consult orthopedics [facility] / OT and pain control for now UA is negative Subjective Date/time seen: 01/09/24 13:21 Interval history: 88-year-old male with past medical history significant for arthritis, hypertension.? Patient presents to the emergency room due to swelling of the right side of his face with painful mastication and swallowing poor per orally intake patient is not really a good historian can not really provide much detail.? Pt not seen doctors for years, continue present care consider DC in 1-2 days time Pt seen by orthopedics Review of Systems Review of Systems: R face pain + knee pain Exam Const: General: comfortable, no acute distress, well developed, alert, awake and average body habitus Nutritional Appearance: average body habitus Orientation/consciousness: patient oriented x3 HENMT: Head: normal to inspection, normocephalic and atraumatic Ears: hearing grossly normal bilaterally Face/Nose/Sinus: normal facial exam, erythema and edema ( right-sided) Face and sinus: normal facial exam, erythema and edema ( right-sided) Eyes: General: appearance normal, both eyes and all related structures Pupils: Equal, round and reactive pupils present EOM: EOMs intact bilaterally Neck: Neck: full ROM, no lymphadenopathy and no JVD Thyroid: thyroid normal Lymphatic: no lymphadenopathy noted Resp: Effort & Inspection: normal respiratory effort and able to speak in complete sentences Auscultation: clear to auscultation bilaterally Cardio: Jugular venous distension: no JVD Rate: regular rate Rhythm: regular rhythm Heart sounds: S1 normal heart sound present and S2 normal heart sound present : General: Yes deferred Skin: Rashes: no rashes Wounds: no wounds Neuro: General: patient oriented x3 and CN's II-XI intact bilaterally Cranial nerves: Yes CN's II-XII intact bilaterally and Yes Equal, round and reactive pupils present Cognition (Neuro): normal cognition Speech: normal speech Gait exam (Neuro): Normal gait present Motor exam (neuro): 5/5 motor strength present throughout Sensory Exam: No Sensory deficit (Neuro) Extrem: General: normal to inspection, full ROM, no joint enlargement and no pedal edema Objective Data Vital Signs Vital Signs: Vital Signs - 24 hr 01/08/24 14:00 01/08/24 14:50 01/08/24 20:34 Temperature 36.6 C 36.5 C Pulse Rate 86 75 Respiratory Rate 20 20 Blood Pressure 118/73 124/72 Pulse Oximetry 95 94 Oxygen Delivery Room Air 01/08/24 20:00 01/09/24 05:13 01/09/24 08:04 Temperature 36.5 C Pulse Rate 75 76 Respiratory Rate 20 Blood Pressure 130/70 Pulse Oximetry 93 Oxygen Delivery Room Air 01/09/24 08:00 Temperature Pulse Rate Respiratory Rate Blood Pressure Pulse Oximetry Oxygen Delivery Room Air Intake/Output Intake/Output: Intake & Output 01/06/24 01/07/24 01/08/24 01/09/24 23:59 23:59 23:59 23:59 Intake Total 1200 4138 1340 Output Total 125 925 400 Balance 1077 8684 947
[2024-01-09 14:00] VITALS: BP 125/66; PULSE 79; RESP 20; TEMP 36.5; O2SAT 94
[2024-01-09 20:41] VITALS: PULSE 86
[2024-01-09 22:00] VITALS: BP 125/56; PULSE 74; RESP 18; TEMP 36.7; O2SAT 91
[2024-01-10] MEDS: SODIUM CHLORIDE 0.9% IV 1,000 ML 70 ML IV CONT (02:21)
[2024-01-10 06:00] VITALS: BP 123/65; PULSE 65; RESP 18; TEMP 36.2; O2SAT 93
[2024-01-10 06:19] LABS: Hematocrit 37.3 % (42.0-52.0); Hemoglobin 11.9 g/dL (14.0-18.0); Mean Corpuscular HGB Conc 31.9 g/dl (32-36); Mean Platelet Volume 10.8 fl (7.4-10.4); Platelet Count Result 171 k/mm3 (150-375); Red Blood Count 3.97 M/mm3 (4.6-6.20); Red Cell Distribution Width 13.1 % (11.5-14.5); White Blood Count 8.4 K/mm3 (4.5-10.0)
[2024-01-10 08:00] VITALS: PULSE 66; RESP 20; O2SAT 96
[2024-01-10 08:19] VITALS: O2SAT 94
--- NOTE | 2024-01-10 09:06 | PM.CNOR ---
Assessment and Plan Assessment and plan (1) Bilateral knee effusions: Code(s): M25.461 - Effusion, right knee; M25.462 - Effusion, left knee Status: Acute (2) Bilateral knee pain: Code(s): M25.561 - Pain in right knee; M25.562 - Pain in left knee Status: Acute Plan Acute bilateral knee pain with severe arthritis. Patient seen and examined. Radiographic images reviewed personally. He hyperflexed his right knee MRI shows the subtle nondisplaced proximal fibula fracture on right. The left knee may have low-grade MCL sprain. He is tender at the adductor tubercle. No gross instability. He may weight bear as tolerated, with the walker. Mobilize as able. The patient is reassured. May follow up as an outpatient in 4-6 weeks. History of Present Illness HPI Consult date: 01/10/24 Chief complaint: Dental Abscess [facility] Past Medical History Medical History (Updated 01/09/24 @ 14:44 by KUNAL Mcduffie) Arthritis Hypertension Surgical History Surgical History No pertinent past surgical history Family History Family History Mother No pertinent past medical history Social History Social History Smoking status: Former smoker Alcohol intake: current Substance use: never Do You Feel Safe in your Home?: Yes Lack of Transportation: No Lack of Food: Never True Current Housing: I Have Housing Concerned About Future Housing: No Difficulty Paying Gas/Electric Bills: No Difficulty Paying for Meds: No Currently Unemployed: No Education: Don't Know Difficulty w/ Childcare or Family Care: No Living arrangements: alone Gender identity (if verbalized by the patient): Male Spiritual care concerns: No Meds Home Medications and Allergies Home Medications Medication Instructions Recorded Confirmed Type aspirin 81 mg tablet 81 mg PO DAILY 12/02/20 01/07/24 History lisinopril 20 mg tablet 20 mg PO DAILY 12/02/20 01/07/24 History metoprolol succinate 100 mg 100 mg PO BID 12/02/20 01/07/24 History tablet,extended release 24 hr nifedipine 30 mg tablet,extended 30 mg PO DAILY 12/02/20 01/07/24 History release Allergies Allergy/AdvReac Type Severity Reaction Status Date / Time No Known Allergies Allergy Verified 01/07/24 18:52 Vital Signs Vital Signs - 24 hr 01/09/24 14:00 01/09/24 20:41 01/09/24 20:00 Temperature 36.5 C Pulse Rate 79 86 Respiratory Rate 20 Blood Pressure 125/66 Pulse Oximetry 94 Oxygen Delivery Room Air 01/09/24 22:00 01/10/24 06:00 01/10/24 08:19 Temperature 36.7 C 36.2 C L Pulse Rate 74 65 Respiratory Rate 18 18 Blood Pressure 125/56 L 123/65 Pulse Oximetry 91 93 94 Oxygen Delivery Room Air Results Labs 01/10/24 05:50 01/09/24 05:34 Labs: Abnormal lab results 01/10/24 Range/Units 05:50 RBC 3.97 L (4.6-6.20) M/mm3 Hgb 11.9 L (14.0-18.0) g/dL Hct 37.3 L (42.0-52.0) % MCHC 31.9 L (32-36) g/dl MPV 10.8 H (7.4-10.4) fl H & H 01/07/24 01/09/24 01/10/24 Range/Units 17:29 05:34 05:50 Hgb 14.9 13.4 L 11.9 L (14.0-18.0) g/dL Hct 46.6 42.3 37.3 L (42.0-52.0) % Coagulation 01/07/24 Range/Units 17:29 INR 1.2 All other labs normal.
[2024-01-10] MEDS: ASPIRIN 81 MG ENTERIC TABLET PO (09:42)
[2024-01-10] MEDS: NIFEdipine 30 MG TAB.ER.24 PO (09:42)
[2024-01-10] MEDS: METOPROLOL SUCCINATE EXT REL 100 MG TABCR PO ×2 (09:42→21:11)
[2024-01-10] MEDS: AMPICILLIN SULB 3 GM/NS 100 ML 3 GM/100 ML VIAL IVPB (09:42)
[2024-01-10] MEDS: lisinopriL 20 MG TABLET PO (09:43)
[2024-01-10] MEDS: ACETAMINOPHEN 325 MG TABLET 650 MG PO (11:35)
[2024-01-10 14:00] VITALS: BP 102/65; PULSE 66; RESP 20; TEMP 35.9; O2SAT 96
--- NOTE | 2024-01-10 15:06 | PM.IMPN ---
Progress Note: A&P Assessment and Plan (1) Dental infection: Code(s): K04.7 - Periapical abscess without sinus Status: Acute (2) Cellulitis: Qualifiers: Site of cellulitis: face Qualified Code(s): L03.211 - Cellulitis of face Code(s): L03.90 - Cellulitis, unspecified Status: Acute (3) Hypertension: Code(s): I10 - Essential (primary) hypertension Status: Acute (4) Abscess, apical: Code(s): K04.7 - Periapical abscess without sinus Status: Acute Plan 88-year-old male with past medical history significant for arthritis, hypertension.? Patient presents to the emergency room due to swelling of the right side of his face with painful mastication and swallowing poor per orally intake. Associated generalized weakness poor p.o. intake also had a fall at home his knee. Right sided facial pain is been ongoing since past week. ED evaluation with leukocytosis 19.4 neutrophil predominant. ESR 58. CRP greater than 9. Creatinine was elevated 2.8 baseline around 1.5-1.9. Influenza RSV COVID negative. Chest x-ray mild atelectasis in the left lower lung zone. 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 Stable moderate nonspecific cerebral white matter disease which likely represents chronic small vessel ischemic disease. Facial CT showed extensive dental disease with cellulitis and soft tissue gas centered at the right mandibular molar. He has been started on IV antibiotics with Zosyn Flagyl. This has been switched to Unasyn. Patient has large bilateral knee effusion. X-rays showed moderate to severe medial and patellofemoral joint arthritis. Orthopedics was consulted. Bilateral MRI knee were performed which showed left meniscal tear [id number] try compartment degenerative changes worse in the medial compartment moderate joint effusion with moderate Lechuga's cyst probable change chronic at the proximal MCL versus low-grade sprain. On right knee MRI complex tearing of the posterior horn and body of medial meniscus with additional probable radial tear at the posterior tricompartmental degenerative change worst in the medial compartment small to moderate joint effusion with small Lechuga's cyst. Leukocytosis resolved. HARVEY continue to improve back to his baseline. PT OT to see. Will switch antibiotic to oral Subjective Date/time seen: 01/10/24 15:06 Interval history: 88-year-old male with past medical history significant for arthritis, hypertension.? Patient presents to the emergency room due to swelling of the right side of his face with painful mastication and swallowing poor per orally intake. Associated generalized weakness poor p.o. intake also had a fall at home his knee. Right sided facial pain is been ongoing since past week. ED evaluation with leukocytosis 19.4 neutrophil predominant. ESR 58. CRP greater than 9. Creatinine was elevated 2.8 baseline around 1.5-1.9. Influenza RSV COVID negative. Chest x-ray mild atelectasis in the left lower lung zone. 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 Stable moderate nonspecific cerebral white matter disease which likely represents chronic small vessel ischemic disease. Facial CT showed extensive dental disease with cellulitis and soft tissue gas centered at the right mandibular molar. He has been started on IV antibiotics with Zosyn Flagyl. This has been switched to Unasyn. Patient has large bilateral knee effusion. X-rays showed moderate to severe medial and patellofemoral joint arthritis. Orthopedics was consulted. Bilateral MRI knee were performed which showed left meniscal tear [id number] try compartment degenerative changes worse in the medial compartment moderate joint effusion with moderate Lechuga's cyst probable change chronic at the proximal MCL versus low-grade sprain. On right knee MRI complex tearing of the posterior horn and body of medial meniscus wi
[2024-01-10 21:06] VITALS: BP 127/57; PULSE 67; RESP 13; TEMP 36.2; O2SAT 97
[2024-01-10] MEDS: AMOXICILLIN/CLAVULANATE K 500-125 MG TAB 1 TABLET PO (21:10)
[2024-01-10 21:11] VITALS: PULSE 82
[2024-01-11 06:00] VITALS: BP 114/57; PULSE 63; RESP 17; TEMP 36.2; O2SAT 96
[2024-01-11] MEDS: AMOXICILLIN/CLAVULANATE K 500-125 MG TAB 1 TABLET PO (06:13)
[2024-01-11 06:26] LABS: Basophils Absolute Auto 0.1 K/mm3 (0.0-0.1); Basophils Percent Auto 0.8 % (0.2-1.2); Eosinophils Absolute Auto 0.3 K/mm3 (0-0.3); Eosinophils Percent Auto 4.1 % (0-4.4); Hematocrit 42.6 % (42.0-52.0); Hemoglobin 13.5 g/dL (14.0-18.0); Immature Granulocyte Absolute 0.15 K/mm3 (0.00-0.031); Immature Granulocyte Percent A 1.8 % (0-0.5); Lymphocytes Absolute Auto 0.78 K/mm3 (0.9-3.2); Lymphocytes Percent Auto 9.3 % (18.3-44.2); Mean Corpuscular HGB Conc 31.7 g/dl (32-36); Mean Corpuscular Hemoglobin 29.8 pg (26-34); Mean Platelet Volume 10.6 fl (7.4-10.4); Monocytes Absolute Auto 0.8 K/mm3 (0.1-0.6); Neutrophils Absolute Auto 6.2 K/mm3 (1.3-6.7); Platelet Count Result 205 k/mm3 (150-375); Red Blood Count 4.53 M/mm3 (4.6-6.20); White Blood Count 8.4 K/mm3 (4.5-10.0)
[2024-01-11 06:57] LABS: Alanine Aminotransferase 31 U/L (6-50); Albumin Level 3.1 g/dL (3.5-5.1); Alkaline Phosphatase 99 U/L (38-126); Anion Gap 3 mmol/L (8-16); Aspartate Amino Transferase 37 U/L (17-59); Bilirubin,Total 0.6 mg/dL (0.2-1.3); Blood Urea Nitrogen 30 mg/dL (9-20); Calcium 8.3 mg/dL (8.4-10.2); Carbon Dioxide 27 mmol/L (22-30); Chloride 106 mmol/L (98-107); Estimated CRCL calculation 37 ml/min; Estimated Glomerular Filt Rate 41; Glucose 106 mg/dL (65-110); Magnesium 2.1 mg/dL (1.6-2.3); Potassium 3.6 mmol/L (3.4-5.0); Sodium 136 mmol/L (137-145)
[2024-01-11] MEDS: ASPIRIN 81 MG ENTERIC TABLET PO (09:08)
[2024-01-11] MEDS: NIFEdipine 30 MG TAB.ER.24 PO (09:08)
[2024-01-11] MEDS: lisinopriL 20 MG TABLET PO (09:08)
[2024-01-11] MEDS: METOPROLOL SUCCINATE EXT REL 100 MG TABCR PO (09:08)
--- NOTE | 2024-01-11 12:00 | PM.PNORT ---
Progress Note: A&P Assessment and Plan (1) Bilateral knee effusions: Code(s): M25.461 - Effusion, right knee; M25.462 - Effusion, left knee Status: Acute (2) Bilateral knee pain: Code(s): M25.561 - Pain in right knee; M25.562 - Pain in left knee Status: Acute Plan Pain controlled with Tylenol. Mobilizing much better with therapy. Swelling improved. Right knee abrasion is healing. Neurovascular intact. No erythema or warmth. Moderate edema. Flexion 120 bilateral. Planning for home health discharge Saturday. Follow up in clinic. Subjective Subjective Date/Time Seen: 01/11/24 12:00 Objective Data Vital Signs Vital Signs: Vital Signs - 24 hr 01/10/24 14:00 01/10/24 21:06 01/10/24 21:11 Temperature 35.9 C L 36.2 C L Pulse Rate 66 67 82 Respiratory Rate 20 13 Blood Pressure 102/65 127/57 L Pulse Oximetry 96 97 Oxygen Delivery 01/10/24 20:00 01/11/24 06:00 Temperature 36.2 C L Pulse Rate 63 Respiratory Rate 17 Blood Pressure 114/57 L Pulse Oximetry 96 Oxygen Delivery Room Air Intake/Output Intake/Output: Intake & Output 01/08/24 01/09/24 01/10/24 01/11/24 23:59 23:59 23:59 23:59 Intake Total 4138 3880 1324 1340 Output Total 925 985 090 2093 Balance 3213 3480 524 190 Meds/Results Medications: Active Medications Generic Name Dose Route Start Last Admin Trade Name Freq PRN Reason Stop Dose Admin Acetaminophen 650 mg 01/10/24 09:51 01/10/24 11:35 Acetaminophen 325 Mg Tablet PO 650 mg Q4H PRN Administration Mild Pain (1-3) or Fever Hydrocodone Bitart/Acetaminophen 1 tab 01/08/24 15:02 Hydrocodone/Acetaminophen (*Crx) 5-325 Mg Tablet PO Q6H PRN Pain Rated 4-6 Amoxicillin/Clavulanate Potassium 1 tablet 01/10/24 22:00 01/11/24 06:13 Amoxicillin/Clavulanate K 500-125 Mg Tab PO 1 tablet Q8HR GWENDOLYN Administration Aspirin 81 mg 01/08/24 09:00 01/11/24 09:08 Aspirin 81 Mg Enteric Tablet PO 81 mg QAM GWENDOLYN Administration Lisinopril 20 mg 01/08/24 09:00 01/11/24 09:08 Lisinopril 20 Mg Tablet PO 20 mg DAILY GWENDOLYN Administration Metoprolol Succinate 100 mg 01/08/24 09:00 01/11/24 09:08 Metoprolol Succinate Ext Rel 100 Mg Tabcr PO 100 mg Q12HR GWENDOLYN Administration Nifedipine 30 mg 01/08/24 09:00 01/11/24 09:08 Nifedipine 30 Mg Tab.Er.24 PO 30 mg DAILY GWENDOLYN Administration Ondansetron HCl 4 mg 01/07/24 20:38 Ondansetron Inj 4 Mg/2 Ml Vial IV PUSH Q4H PRN Nausea Radiology Results: ITS Impressions Chest X-Ray 01/07/24 17:42 IMPRESSION: 1. Mild atelectasis in left lower lung zone. Head CT 01/07/24 18:19 IMPRESSION: 1. 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 2. Stable moderate nonspecific cerebral white matter disease, which likely represents chronic small vessel ischemic disease. Face CT 01/07/24 18:22 IMPRESSION: 1. Extensive dental disease. Cellulitis and soft tissue gas centered at a right mandibular molar. Knee X-Ray 01/08/24 14:28 IMPRESSION: 1. Relatively symmetric small bilateral knee joint effusions without layering lipohemarthrosis and without acute osseous abnormality at either knee. 2. Also relatively symmetric mild patellofemoral and at least moderate severity medial compartment osteoarthritis of both knees. Knee X-Ray 01/08/24 14:28 IMPRESSION: 1. Relatively symmetric small bilateral knee joint effusions without layering lipohemarthrosis and without acute osseous abnormality at either knee. 2. Also relatively symmetric mild patellofemoral and at least moderate severity medial compartment osteoarthritis of both knees. Knee MRI 01/10/24 08:37 Impression: Complex tearing of the posterior horn and body of medial meniscus with additional probable radial tear at the posterior. Tricompartmental degenerative change, as detailed above, worst in the medial compartment. Smal
--- NOTE | 2024-01-11 13:45 | PM.DS ---
DS: Admitting Diagnosis Discharge Date 01/11/2024 Admitting Diagnosis Fall DS: Discharge Diagnosis Discharge Diagnosis (1) Dental infection: Code(s): K04.7 - Periapical abscess without sinus Status: Acute (2) Cellulitis: Qualifiers: Site of cellulitis: face Qualified Code(s): L03.211 - Cellulitis of face Code(s): L03.90 - Cellulitis, unspecified Status: Acute (3) Hypertension: Code(s): I10 - Essential (primary) hypertension Status: Acute (4) Abscess, apical: Code(s): K04.7 - Periapical abscess without sinus Status: Acute DS: Summary Hospital Course Hospital Course: 88-year-old male with past medical history significant for arthritis, hypertension.? Patient presents to the emergency room due to swelling of the right side of his face with painful mastication and swallowing poor per orally intake.? Associated generalized weakness poor p.o. intake also had a fall at home his knee.? Right sided facial pain is been ongoing since past week.? ED evaluation with leukocytosis 19.4 neutrophil predominant.? ESR 58.? CRP greater than 9.? Creatinine was elevated 2.8 baseline around 1.5-1.9.? Influenza RSV COVID negative.? Chest x-ray mild atelectasis in the left lower lung zone.? 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 Stable moderate nonspecific cerebral white matter disease which likely represents chronic small vessel ischemic disease.? Facial CT showed extensive dental disease with cellulitis and soft tissue gas centered at the right mandibular molar.? He has been started on IV antibiotics with Zosyn Flagyl.? This has been switched to Unasyn.? Patient has large bilateral knee effusion.? X-rays showed moderate to severe medial and patellofemoral joint arthritis.? Orthopedics was consulted.? Bilateral MRI knee were performed which showed left meniscal tear [id number] try compartment degenerative changes worse in the medial compartment moderate joint effusion with moderate Lechuga's cyst probable change chronic at the proximal MCL versus low-grade sprain.? On right knee MRI complex tearing of the posterior horn and body of medial meniscus with additional probable radial tear at the posterior tricompartmental degenerative change worst in the medial compartment small to moderate joint effusion with small Lechuga's cyst.? Leukocytosis resolved.? HARVEY continue to improve back to his baseline.? PT OT to see and recommended rehab however patient refused and home health is being arranged. He will be switched to oral antibiotic. He cellulitis much improved with IV antibiotics. Leukocytosis has resolved as well. Will continue Augmentin at discharge and follow-up with dentist as an outpatient basis for continued treatment. Time Spent with Patient Time attestation: Total time spent providing and/or coordinating discharge services: 35 minutes Exam Narrative: APPEARANCE: Not in acute distress HEAD: normocephalic, atraumatic. EYES: PERRLA/EOMI, conjunctivae clear. NOSE: Normal no drainage THROAT: Pharynx clear, no exudate. NECK: Supple. No adenopathy, no masses. RESPIRATORY: Airway patent, respirations nonlabored. Clear to auscultation bilaterally, no rales, rhonchi, wheezing. CARDIOVASCULAR: Regular rate and rhythm without murmurs rubs or gallops. ABDOMINAL: Soft, nontender, nondistended, normal bowel sounds MUSCULOSKELETAL: Moves all extremities. Strength/ROM intact, No edema, No calf tenderness. Bilateral knee restricted range of motion NEURO: Alert. Cranial nerves II through XII intact.? Grossly intact SKIN: Warm, dry. Normal Color DS: Data Data Completed and Pending Labs on day of discharge: Labs from last 24 hours 01/11/24 06:11 WBC 8.4 RBC 4.53 L Hgb 13.5 L Hct 42.6 MCV 94.0 MCH 29.8 MCHC 31.7 L RDW 13.0 Plt Count 205 MPV 10.6 H Immature Gran % (Auto) 1.8 H Neut % (Auto) 74.0 H Lymph % (Auto) 9.3 L Lake % (Auto) 10.0 H
== END 2024-01-11 14:16 | disposition home health service (06) | DRG 603 ==
LOC: ANHED 18:57 → ANH3MEDSUR 21:29
PROVIDERS: Family Medicine; Physician Assistant; Admitting Provider Internal Medicine; Emergency Provider Emergency Medicine; Visit Provider Internal Medicine
DX: L03.211 Cellulitis of face (principal); K04.7 Periapical abscess without sinus; I10 Essential (primary) hypertension; M19.90 Unspecified osteoarthritis, unspecified site; Z20.822 Contact with and (suspected) exposure to COVID-19; M25.461 Effusion, right knee; M25.462 Effusion, left knee; W18.30XA Fall on same level, unspecified, initial encounter; E66.3 Overweight; Z68.33 Body mass index [BMI] 33.0-33.9, adult; Z79.82 Long term (current) use of aspirin; Z87.891 Personal history of nicotine dependence
CPT/HCPCS: 36415; 70450; 70486; 71046; 73560; 73721; 80048; 80053; 81001; 83735; 85025; 85027; 85055; 85610; 85652; 85730; 86140; 87040; 87086; 87637; 96361; 96365; 96366; 96367; 97110; 97161; 97166; 97530; 97535; 99285; A9270; G0378; J0295; J1836; J7030

== ENCOUNTER 2024-07-22 11:21 | Emergency (ER) | payer OTHER, SELFPAY ==
[2024-07-22] VITALS (7 sets, daily range): BP systolic 98–198; BP diastolic 27–78; PULSE 83–90; RESP 29–40; TEMP 36.4; O2SAT 88–96
--- NOTE | ~2024-07-22 | XR_ITS ---
AP views of the pelvis Clinical history: Pain Findings: No acute fracture or dislocation is seen. Osseous alignment is anatomic. Bilateral hip and SI joint spaces are preserved. There is degenerative spondylosis of the lumbar spine. Soft tissues ar e unremarkable. Impression: No fracture or dislocation seen. Reviewed, dictated and finalized at location . Impression: No fracture or dislocation seen.
--- NOTE | ~2024-07-22 | XR_ITS ---
XR chest 1V 07/22/2024 12:38 Indication: Low oxygen saturation. Weakness. Procedure: AP view of the chest Comparison: 01/07/2024 Findings: There is airspace consolidation right mid thorax, consistent with effusion. Cardiomegaly. N o significant effusion. No pneumothorax. Impression: 1: Focal consolidation right mid thorax, compatible with pneumonia. Reviewed, dictated and finalized at location B. Impression: 1: Focal consolidation right mid thorax, compatible with pneumonia.
--- NOTE | ~2024-07-22 | CT_ITS ---
CT head without contrast Indication: Head injury COMPARISON: 01/07/2024 Technique: Serial scans were obtained through the brain without the administration of contrast. Dose reduction technique was used on this scan by utilizing automated exposure control and iterative recon struction technique. The dose-length product (DLP) was 681.00 mGy-cm. Findings: There is no evidence of intracranial hemorrhage, mass lesion, or acute infarct. The ventri cles and subarachnoid spaces are dilated, consistent with mild atrophy. Low attenuation regions are seen within the periventricular white matter bilaterally, likely representing changes from chronic mi crovascular ischemic disease. There is no evidence of edema, mass effect or midline shift. There is mild bilateral maxillary sinus disease. The remaining visualized paranasal sinuses and mastoid air ce lls are clear. Impression: No intracranial hemorrhage, mass, or acute infarct. Atrophy and chronic white matter changes, as above. Reviewed, dictated and finalized at [facility]. Impression: No intracranial hemorrhage, mass, or acute infarct. Atrophy and chronic white matter changes, as above.
--- NOTE | ~2024-07-22 | CT_ITS ---
EXAMINATION: CT cervical spine wo con DATE: 07/22/2024 12:27 INDICATION: Fall with head injury TECHNIQUE: Computed tomography (CT) of the cervical spine was performed without intravenous contrast. Automated exposure control and iterative reconstruction technique were employed. The dose-length pro duct was 368.98 mGy-cm. COMPARISON: 06/03/2021 FINDINGS: Mild cervical dextrocurvature. Sagittal alignment is normal. 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 Unchanged chronic T1 compression fracture with 20% anterior vertebral body height lo ss and with prominent Schmorl's node along the inferior endplate. There is chronic mild anterior wedg ing at C6 which appears new since the prior study. There is prominent ossification anterior longitudi nal ligament extending from C3 through the inferior margin of the jodoe-wh-ahgt at T1 which is solidl y bridging from C4 through T1. There is developing fusion across the fused bilateral cervical facet j oints most advanced bilaterally at C7-T1. No acute fractures identified. Moderate disc height loss at C6-C7. Mild central canal stenosis at C4-5 C6 and C6-7 resulting from mild hypertrophic change or po sterior endplates. Moderate multilevel bilateral cervical facet osteoarthritis. There is moderate tad ral foraminal stenosis bilaterally at C3-C4, C6-C7 and on the right at T1-T2 and T2-T3. Mild neural f oraminal stenosis throughout the remainder of the cervical spine. Small amount of atherosclerotic lauren cific lesion at the bilateral carotid bulbs. Cervical soft tissues are otherwise unremarkable. IMPRESSION: 1. 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 No acute osseous abnormality. Reviewed, dictated and finalized at location A. IMPRESSION: 1. Moderate cervical spondylosis with prominent ossification of the anterior lo ngitudinal ligament with fusion from C4 through T1. No acute osseous abnormalit y.
--- NOTE | 2024-07-22 12:02 | ECG_ITS ---
Test Date: 2024-07-22 11:45:59 Measurements Intervals [place] Rate: 91 P: 0 CA: 0 QRS: -30 QRSD: 94 T: 28 QT: 368 QTc: 453 Interpretive Statements SINUS OR ECTOPIC ATRIAL RHYTHM ATRIAL PREMATURE COMPLEXES DELAYED PRECORDIAL R/S TRANSITION BASELINE ARTIFACT- I, II, AVR, AVL, AVF, V1-V6 BORDERLINE ECG No previous ECG available for comparison Electronically Signed On 07-22-2024 12:53:57 CDT by Kendell Navarro D.O.
--- NOTE | 2024-07-22 12:03 | ED.FALL ---
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 Related Data Home Medications Medication Instructions Recorded Confirmed aspirin 81 mg tablet 81 mg PO DAILY 12/02/20 01/07/24 lisinopril 20 mg tablet 20 mg PO DAILY 12/02/20 01/07/24 metoprolol succinate 100 mg 100 mg PO BID 12/02/20 01/07/24 tablet,extended release 24 hr nifedipine 30 mg tablet,extended 30 mg PO DAILY 12/02/20 01/07/24 release Allergies Allergy/AdvReac Type Severity Reaction Status Date / Time No Known Allergies Allergy Verified 01/07/24 18:52 Review of Systems Review of Systems: ROS unobtainable: Yes unobtainable due to medical condition and unobtainable due to mental status [facility] Past Medical History Medical History (Updated 07/22/24 @ 18:04 by Zoie Watkins MD) Arthritis Hypertension Surgical History Surgical History No pertinent past surgical history Family History Family History Mother No pertinent past medical history Social History Social History Smoking status: Former smoker Alcohol intake: current Substance use: never Do You Feel Safe in your Home?: Yes Lack of Transportation: No Lack of Food: Never True Current Housing: I Have Housing Concerned About Future Housing: No Difficulty Paying Gas/Electric Bills: No Difficulty Paying for Meds: No Currently Unemployed: No Education: Don't Know Difficulty w/ Childcare or Family Care: No Living arrangements: alone Gender identity (if verbalized by the patient): Male Spiritual care concerns: No Exam Narrative: EXAMINATION OF ORGAN SYSTEMS/BODY AREAS: Constitutional: Vital signs per nursing GENERAL: Eyes closed but will open to stimulus HEAD: Abrasion to right forehead. EYES: Right conjunctival injected ENT: Hearing grossly intact LUNGS: Nonlabored breathing. HEART: [Regular rate and rhythm] ABD: [Soft], [nontender to palpation] EXT: No obvious deformity, no pelvic tenderness SKIN: Mottled skin especially to legs/feet NEURO: [Eyes closed but opens to voice. Is able to move all extremities to command.] PSYCH: Normal affect Course Vital Signs Vital signs: Vital Signs Temperature 97.5 F L 07/22/24 11:27 Pulse Rate 90 07/22/24 11:27 Respiratory Rate 38 H 07/22/24 11:27 Blood Pressure 117/70 07/22/24 11:27 Pulse Oximetry 88 L 07/22/24 11:27 Oxygen Delivery Nasal Cannula 07/22/24 11:27 Oxygen Flow Rate 4 07/22/24 11:27 Temperature 97.5 F L 07/22/24 11:27 Pulse Rate 85 07/22/24 13:59 Respiratory Rate 29 H 07/22/24 13:59 Blood Pressure 105/27 L 07/22/24 13:59 Pulse Oximetry 92 07/22/24 13:59 Oxygen Delivery BiPAP 07/22/24 13:05 Oxygen Flow Rate 15 07/22/24 12:00 MDM - Fall MDM Narrative Medical decision making narrative: Patient presents here with being found unresponsive on the floor, upon initial evaluation, he seems sleepy but will answer questions in brief words, he does have an obvious forehead abrasion and some bruises to his legs, skin does seem mottled, cardiac and infectious workup immediately initiated, antibiotics started, IV fluids continued, he was slightly hypoxic even on 60 L non-rebreather though it was very difficult to obtain an accurate oxygen saturations so ABG obtained. He is started on BiPAP at this time while we ascertain his code status, as patient unable to provide this due to mental status. His brother is on the way, patient
[2024-07-22] MEDS: LACTATED RINGERS 1,000 ML 999 ML IV CONT ×2 (12:13→13:54)
[2024-07-22 12:24] LABS: Hematocrit 48.8 % (42.0-52.0); Mean Corpuscular HGB Conc 32.8 g/dl (32-36); Mean Corpuscular Hemoglobin 30.8 pg (26-34); Mean Corpuscular Volume 93.8 fl (80-100); Platelet Count Result 231 k/mm3 (150-375); Red Cell Distribution Width 13.5 % (11.5-14.5); White Blood Count 23.9 K/mm3 (4.5-10.0)
--- NOTE | 2024-07-22 12:35 | PCRCNOTE ---
pt not available for ABG at this time. Pt in xray
[2024-07-22 12:41] LABS: INR 1.5; Prothrombin Time 18.3 Seconds (11.1-14.7)
[2024-07-22 12:42] LABS: Partial Thromboplastin Time 34.2 Seconds (22.3-36.8)
[2024-07-22 12:47] LABS: Alveolar/Arterial O2 Gradient 602.8 mmHg; Base Excess ABG -19.8 mEq/l (+/-2.0); Fractional Inspired Oxygen 100 %; HCO3 ABG 7.5 mEq/l (22.0-26.0); Oxygen Saturation ABG 93.9 % (95.0-100.0); PO2 ABG 87.5 mmHg (80.0-100.0); PO2 FiO2 Ratio Arterial Blood 0.88 %; Total Hemoglobin 16.2 g/dL (12.0-18.0)
[2024-07-22 12:52] LABS: PCO2 ABG 22.7 mmHg (35.0-45.0); pH ABG 7.134 (7.350-7.450)
[2024-07-22 12:52] LABS: Band Neutrophils Percent 10 % (0-6); Lymphocytes Absolute Manual 0.47 K/mm3 (1.1-4.5); Metamyelocytes Percent 2 %; Monocytes Absolute Manual 0.47 K/mm3 (0.1-0.90); Monocytes Percent Manual 2 % (3-9); Neutrophils Absolute Manual 22.46 K/mm3 (1.3-6.7); Neutrophils Percent Manual 84 % (46-73); Platelet Estimate Adequate (Adequate); Schistocytes None Seen; Total Cells Counted 100
[2024-07-22 12:53] LABS: Device NON-REBREATHER MASK; Modified Allen's Test Pass; Site Drawn RIGHT RADIAL
[2024-07-22 12:57] LABS: Lactic Acid Reflex 11.4 mmol/L (0.7-2.0)
[2024-07-22 13:17] LABS: Alanine Aminotransferase 286 U/L (6-50); Albumin Level 4.1 g/dL (3.5-5.1); Alkaline Phosphatase 103 U/L (38-126); Anion Gap 30 mmol/L (4-12); Bilirubin,Total 2.5 mg/dL (0.2-1.3); Blood Urea Nitrogen 83 mg/dL (9-20); CRP 25.5 mg/dL (<1.0); Carbon Dioxide 10 mmol/L (22-30); Chloride 98 mmol/L (98-107); Estimated CRCL calculation 11 ml/min; Estimated Glomerular Filt Rate 10; Glucose 132 mg/dL (65-110); Lipase 32 U/L (23-300); Sodium 138 mmol/L (137-145)
[2024-07-22 13:17] LABS: Glucose Point of Care 113 mg/dl (65-105)
[2024-07-22 13:36] LABS: Aspartate Amino Transferase 1870 U/L (17-59)
[2024-07-22 13:42] LABS: D Dimer > 20.00 ug/mL (<0.48)
[2024-07-22] MEDS: CEFEPIME 2 GM/NS 50 ML 2 GM/50 ML BAG IVPB (13:53)
[2024-07-22 14:10] LABS: Add Urine Microscopic? YES; Appearance Urine Turbid (Clear); Bacteria Urine None Seen /hpf; Bilirubin Urine 1+ (Negative); Blood Urine 3+ (Negative); Color Urine Dark Yellow (Yellow); Glucose Urine UA Negative (Negative); Ketones Urine Negative (Negative); Leukocyte Esterase Ur Trace LEU/UL (Negative); Need Manual Microscopic Reviewed; Nitrate Urine Negative (Negative); Protein Urine 2+ mg/dL (Negative); RBC Urine >100 /hpf (0-2); Specific Grav Ur 1.017 (1.001-1.035); Squamous Epithelial Cell Urine Moderate /hpf (Few); WBC Urine 0-5 /hpf (0-3)
[2024-07-22 14:12] LABS: Alveolar/Arterial O2 Gradient 438.4 mmHg; Base Excess ABG -22.8 mEq/l (+/-2.0); Fractional Inspired Oxygen 90 %; HCO3 ABG 7.1 mEq/l (22.0-26.0); Oxygen Content ABG 21.6 %vol (16.0-22.0); Oxygen Saturation ABG 98.4 % (95.0-100.0); Oxyhemoglobin 97.7 % THb (90.0-100.0); PCO2 ABG 28.1 mmHg (35.0-45.0); PO2 ABG 174.5 mmHg (80.0-100.0); PO2 FiO2 Ratio Arterial Blood 1.94 %; Total Hemoglobin 15.5 g/dL (12.0-18.0)
[2024-07-22 14:16] LABS: Device BIPAP; Modified Allen's Test Pass; Site Drawn RIGHT BRACHIAL; pH ABG 7.018 (7.350-7.450)
[2024-07-22 14:17] LABS: Expiratory Pressure 8 cmH2O; Inspiratory Pressure 16 cmH2O
[2024-07-22] MEDS: AZITHROMYCIN 500 MG/NS 250 ML 500 MG/250 ML BAG 250 MG IVPB (14:26)
[2024-07-22 14:51] LABS: Troponin I 0.129 ng/mL (0.000-0.034)
[2024-07-22 15:15] LABS: MRSA (PCR) NOT DETECTED (NOT DETECTE)
[2024-07-22 15:20] LABS: Reflex Lactic Acid Yes or No Add Lactic
== END 2024-07-22 16:32 | disposition expired ==
PROVIDERS: Emergency Provider Emergency Medicine
DX: A41.9 Sepsis, unspecified organism (principal); J96.01 Acute respiratory failure with hypoxia; J18.9 Pneumonia, unspecified organism; S09.90XA Unspecified injury of head, initial encounter; W19.XXXA Unspecified fall, initial encounter; I10 Essential (primary) hypertension; Z79.82 Long term (current) use of aspirin; Z87.891 Personal history of nicotine dependence
CPT/HCPCS: 36415; 36600; 70450; 71045; 72125; 72170; 80053; 81001; 82805; 82948; 83605; 83690; 84484; 85025; 85380; 85610; 85730; 86140; 87040; 87641; 93005; 94002; 96361; 96365; 96367; 99291; J0456; J0692; J7120